=== PATIENT | female | born 1940 | race Caucasian/White ===

== ENCOUNTER 2020-05-05 18:13 | Inpatient (IN) | payer BC ==
[~2020-05-05] VITALS: Ht 160 cm; Wt 92.5 kg
[2020-05-05 18:20] VITALS: BP 194/88
[2020-05-05] MEDS ORDERED: ZOCOR 20 MG TAB20 M1 PO (18:25)
[2020-05-05] MEDS ORDERED: TRIAMTERENE/HCT1 CA1 PO (18:25)
[2020-05-05] MEDS ORDERED: LOPRESSOR50 MG PO (18:25)
[2020-05-05] MEDS ORDERED: KLOR-CON M2020 MEQ PO (18:26)
[2020-05-05 18:34] LABS: URINE BILIRUBIN NEGATIVE (Negative); URINE BLOOD 2+ (Negative); URINE CLARITY CLEAR; URINE COLOR YELLOW; URINE GLUCOSE-RANDOM NEGATIVE (Negative); URINE KETONES NEGATIVE (Negative); URINE NITRITE-REFLEX NEGATIVE (Negative); URINE PROTEIN TRACE (Negative); URINE UROBILINOGEN 0.2 E.U./dl (0.2-1.0)
[2020-05-05 18:36] LABS: URINE LEUKOCYTES-REFLEX 3+ (Negative)
[2020-05-05 18:45] LABS: MUCUS None Seen strn/LPF (None Seen); SQUAMOUS >10 Many /LPF (0-3)
[2020-05-05 18:46] LABS: BACTERIA-REFLEX 1-9 Few /HPF (None Seen); HYALINE CASTS 0-3 Few /LPF (None Seen); URINE WBC-REFLEX >25 Many /HPF (0-5)
[2020-05-05 18:47] LABS: CRYSTALS None Seen /LPF (None Seen); URINE RBC 0-2 Rare /HPF (0-2); WBC CLUMPS Few (None Seen)
[2020-05-05 18:50] LABS: ABSOLUTE BASOPHILS 0.1 thou/uL (0.0-0.2); ABSOLUTE EOSINOPHILS 0.4 thou/uL (0.0-0.7); ABSOLUTE LYMPHOCYTES 1.8 thou/uL (0.8-5.3); ABSOLUTE NEUTROPHILS 11.3 thou/uL (1.6-8.1); BASOPHILS 0.6 %; EOSINOPHILS 2.4 %; HEMATOCRIT 38.5 % (37.0-47.0); HEMOGLOBIN 12.9 gm/dL (12.0-15.0); LYMPHOCYTES 12.3 %; MCHC 33.6 g/dL (28.0-37.0); MCV 80.5 fL (80.0-100.0); MPV 6.8 fl. (7.2-11.1); NUCLEATED RBCS 0 /100WBC; PLATELET COUNT* 372 thou/uL (150-400); POLYS 77.7 %; RBC 4.78 mil/uL (4.20-5.00); RDW-CV 15.1 % (10.5-14.5); WBC 14.6 thou/uL (4.0-11.0)
[2020-05-05 19:05] LABS: CALCIUM 9.7 mg/dL (8.5-10.1); POTASSIUM 3.1 mmol/L (3.5-5.1)
[2020-05-05 19:09] LABS: ALBUMIN 3.8 g/dL (3.4-5.0); TOTAL BILIRUBIN 0.9 mg/dL (<0.1-1.0); TOTAL PROTEIN 8.1 g/dL (6.4-8.2)
[2020-05-05] MEDS ORDERED: BIMATOPROST2.5 ML OPHTHALMIC (21:48)
[2020-05-05 22:04] VITALS: BP 166/51
--- NOTE | 2020-05-06 05:24 | NUR ---
PT ALERT AND ORIENTED, STANDBY TO RESTROOM. REPORTS NO PAIN/NAUSEA/VOMITING. NPO SINCE MIDNIGHT. GI CONSULTED THIS MORNING
[2020-05-06 09:10] VITALS: BP 133/64
[2020-05-06 10:12] LABS: CALCIUM 8.8 mg/dL (8.5-10.1); CREATININE 0.9 mg/dL (0.6-1.3)
[2020-05-06 10:15] LABS: POTASSIUM 2.9 mmol/L (3.5-5.1)
[2020-05-06 10:37] LABS: MAGNESIUM 1.5 mg/dL (1.8-2.4); PHOSPHORUS* 4.3 mg/dL (2.5-4.9)
--- NOTE | 2020-05-06 13:46 | EKG ---
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
[2020-05-06 16:00] VITALS: BP 175/51
--- NOTE | 2020-05-06 16:00 | NUR ---
SPOKE WITH PT.WHO WAS LYING IN BED. DAUGHTER,NI,AT BEDSIDE. PT.ALERT AND ORIENTED. STATED SHE LIVES WITH NI. PT.SAID SHE LOST HER 2 YEARS AGO AND MOVED IN WITH DAUGHTER SHE DID NOT HAVE STAIRS IN HER HOME. PT.SAID SHE IS INDEPENDENT,DRIVES. NO USE OF DME OR HX OF HH. DISCUSSED DPOA BUT PT.AND DAUGHTER REFUSED. DAUGHTER SAID THERE ARE 4 CHILDREN AND THEY AGREE ON EVERYTHING ABOUT THE CARE OF THEIR MOM. PT.TO HAVE SURGERY TOMORROW. CM WILL FOLLOW POST OP FOR DISCHARGE PLANNING.
--- NOTE | 2020-05-06 17:27 | NUR ---
PATIENT RESTING IN BED. PATIENT IS UP STANDBY ASSIST. PATIENT IS NPO. PATIENT HAS DENIED ANY NAUSEA TODAY. PATIENT HAS ABDOMINAL PAIN BUT STATES IT IS MINOR AND DOES NOT NEED ANY MEDICATION FOR IT. PATIENT IS SCHEDULED FOR SURGERY TOMORROW. PATIENT DENIES ANY NEEDS AT THIS TIME. CALL LIGHT WITHIN REACH.
[2020-05-06 20:00] VITALS: BP 149/68
[2020-05-06 22:46] LABS: MAGNESIUM 1.9 mg/dL (1.8-2.4); POTASSIUM 3.5 mmol/L (3.5-5.1)
[2020-05-06 23:55] VITALS: BP 152/75
[2020-05-07 05:17] LABS: HEMATOCRIT 30.5 % (37.0-47.0); MCH 27.4 pg (26.0-34.0); MCHC 33.8 g/dL (28.0-37.0); MCV 81.1 fL (80.0-100.0); MPV 7.1 fl. (7.2-11.1); RBC 3.77 mil/uL (4.20-5.00); RDW-CV 15.2 % (10.5-14.5); WBC 8.5 thou/uL (4.0-11.0)
[2020-05-07 05:20] LABS: HEMOGLOBIN 10.3 gm/dL (12.0-15.0)
[2020-05-07 05:31] LABS: ALBUMIN 2.5 g/dL (3.4-5.0); CALCIUM 7.7 mg/dL (8.5-10.1); CREATININE 0.8 mg/dL (0.6-1.3); MAGNESIUM 1.7 mg/dL (1.8-2.4); POTASSIUM 3.3 mmol/L (3.5-5.1); TOTAL BILIRUBIN 0.6 mg/dL (<0.1-1.0); TOTAL PROTEIN 5.6 g/dL (6.4-8.2)
--- NOTE | 2020-05-07 06:53 | NUR ---
PATIENT SLEPT MOST OF THE NIGHT. IV FLUIDS CONTINUE TO INFUSE ORDERED. PATIENT WAS GIVEN PAIN MEDICINE ONCE THIS SHIFT. PATIENT HAS BEEN NPO SINCE MIDNIGHT FOR SURGERY TODAY. WILL CONTINUE TO MONITOR.
[2020-05-07 08:45] VITALS: BP 140/57
--- NOTE | 2020-05-07 14:00 | NUR ---
PT.IN SURGERY FOR LAPROSCOPY POSSIBLE LAPAROTOMY.
[2020-05-07 21:00] VITALS: BP 156/70
--- NOTE | 2020-05-07 21:00 | NUR ---
PT ARRIVED TO UNIT FROM PACU PER BED ACCOMPANIED BY OR STAFF. PT AOX4, DROWSY. RECEIVED IV PAIN MED FROM PACU PRIOR TO TRANSFER TO FLOOR. O2 2L NC SAT 94%, CAPNO MONITOR TO BE PLACED ON PT. LAC SL. MAY DRAINING YELLOW URINE. VSS. ABD MIDLINE INCISION DERMABOND, NO BLEEDING OR EXCESSIVE BRUISING. LAPS SITES CLEAN AND DRY, NO BLEEDING OR BRUISING. PT DENIES NEEDS AT PRESENT, WILL CONTINUE TO MONITOR AND PROVIDE CARES NEEDED. CALL LITE IN EASY REACH, BED ALARM ON PT.
[2020-05-08] VITALS: BP 152/75
[2020-05-08 04:00] VITALS: BP 164/81
[2020-05-08 04:31] LABS: HEMATOCRIT 33.2 % (37.0-47.0); HEMOGLOBIN 11.1 gm/dL (12.0-15.0); MCH 27.8 pg (26.0-34.0); MCHC 33.6 g/dL (28.0-37.0); MCV 82.7 fL (80.0-100.0); MPV 7.7 fl. (7.2-11.1); NUCLEATED RBCS 0 /100WBC; PLATELET COUNT* 213 thou/uL (150-400); RBC 4.01 mil/uL (4.20-5.00); RDW-CV 15.3 % (10.5-14.5); WBC 10.2 thou/uL (4.0-11.0)
[2020-05-08 04:54] LABS: CALCIUM 7.9 mg/dL (8.5-10.1); CREATININE 0.9 mg/dL (0.6-1.3)
--- NOTE | 2020-05-08 05:10 | NUR ---
PT SLEPT WELL OVERNIGHT. CAPNO ON, ALARMING BRIEFLY AT TIMES WITH SHORT PERIODS OF APNEA, SATS REMAINING 90'S 02 2L NC. MAY DRAINING YELLOW URINE. ABD LAP SITES INTACT WITHOUT EXCESSIVE BRUISING OR BLEEDING. LAC IVF INFUSING PER PUMP. SCDS ON BLE. IV PAIN MED PRN. AWAKENS BRIEFLY WITH CARES AND BACK TO SLEEP. TAKING FEW SIPS LIQUIDS WITHOUT N/V. CALL LITE IN EASY REACH, BED ALARM ON FOR SAFETY.
[2020-05-08 07:02] LABS: ABSOLUTE LYMPHOCYTES 0.8 thou/uL (0.8-5.3); ABSOLUTE MONOCYTES 0.5 thou/uL (0.0-1.2); ABSOLUTE NEUTROPHILS 8.9 thou/uL (1.6-8.1); PLATELET ESTIMATE ADEQUATE
[2020-05-08 07:30] VITALS: BP 163/67
--- NOTE | 2020-05-08 11:02 | NUR ---
PT.POD #1. ON CLEAR LIQUIDS. TO HAVE P.T. EVAL TODAY. SHE MAY NEED HOME HEALTH IF ADDITONAL THERAPY NEEDED. NO HX OF HOME HEALTH. SHE DOES NOT HAVE A PREFERENCE OF [facility]. CM WILL FOLLOW.
--- NOTE | 2020-05-08 13:22 | NUR ---
PT HAD GOOD AM UP TO CHAIR AND MAY REMOVED, PT AMBULATED HALLWAYS AFTER LUNCH TO [facility] [place] ST[facility] AND BACK WITH STANDBY ASSIST.
--- NOTE | 2020-05-08 16:25 | NUR ---
PT SLEPT WELL THIS AFTERNOON WITH DAUGHTER AT BEDSIDE. PT STATES SHE HAD NOT VOIDED SINCE HAVING MAY REMOVED.PT AMBULATED TO THE TOILET AND WAWS ABLE TO VOID.
[2020-05-08 20:00] VITALS: BP 152/64
[2020-05-09 00:02] VITALS: BP 132/55
[2020-05-09 03:58] VITALS: BP 144/69
[2020-05-09 04:59] LABS: HEMATOCRIT 27.9 % (37.0-47.0); HEMOGLOBIN 9.3 gm/dL (12.0-15.0); MCH 27.3 pg (26.0-34.0); MCHC 33.4 g/dL (28.0-37.0); MCV 81.6 fL (80.0-100.0); MPV 7.5 fl. (7.2-11.1); RBC 3.42 mil/uL (4.20-5.00); RDW-CV 14.9 % (10.5-14.5); WBC 9.9 thou/uL (4.0-11.0)
--- NOTE | 2020-05-09 05:11 | NUR ---
PT SLEPT OFF AND ON OVERNIGHT. RECEIVING PO PAIN MED AT HS WITH GOOD RESULT. AMBULATES TO BR WITH SBA, VOIDING WITHOUT DIFFICULTY. ABD LAP SITES WELL APPROXIMATED, NO BLEEDING. ROOM AIR SAT 96%. DENIES N/V. AM LABS. ABLE TO USE CALL LITE AND MAKE NEEDS KNOWN.
[2020-05-09 05:39] LABS: CALCIUM 7.6 mg/dL (8.5-10.1); CREATININE 0.8 mg/dL (0.6-1.3); POTASSIUM 3.6 mmol/L (3.5-5.1)
[2020-05-09 08:30] VITALS: BP 142/66
[2020-05-09 12:08] LABS: HEMATOCRIT 29.7 % (37.0-47.0); HEMOGLOBIN 9.9 gm/dL (12.0-15.0); MCH 27.3 pg (26.0-34.0); MCHC 33.3 g/dL (28.0-37.0); MCV 81.9 fL (80.0-100.0); MPV 6.7 fl. (7.2-11.1); RBC 3.62 mil/uL (4.20-5.00); RDW-CV 15.1 % (10.5-14.5); WBC 11.8 thou/uL (4.0-11.0)
[2020-05-09 16:01] VITALS: BP 180/82
--- NOTE | 2020-05-09 18:51 | NUR ---
PT HAD GOOD DAY, PAIN CONTROLLED, VSS, AMBULATED IN HALLS. PT HAS ABD BINDER FOR SUPPORT WHEN UP. DAUGHTER AT BEDSIDE MOST OF THE DAY FOR SUPPORT. STILL NO BM AND STATES SHE IS NOT PASSING GAS. GOOD BOWEL SOUNDS IN ALL QUADS.
[2020-05-09 21:47] VITALS: BP 154/71
[2020-05-10 04:00] LABS: HEMATOCRIT 28.1 % (37.0-47.0); HEMOGLOBIN 9.3 gm/dL (12.0-15.0); MCH 27.5 pg (26.0-34.0); MCHC 33.2 g/dL (28.0-37.0); MCV 82.9 fL (80.0-100.0); MPV 7.4 fl. (7.2-11.1); RBC 3.39 mil/uL (4.20-5.00); RDW-CV 15.2 % (10.5-14.5); WBC 8.9 thou/uL (4.0-11.0)
--- NOTE | 2020-05-10 04:23 | NUR ---
PAIN IS RATED 2/10, GIVEN TYLENOL AT BEDTIME. UP STANDBY ASSIST WITH WALKER. MIDLINE 3 LAPSITES FREE OF S/S INFECTION. ALERT AND ORIENTED, ROOM AIR, SOFT DIET - TOLERATING. NO NAUSEA, VOMITING OR WORSENING OF PAIN REPORTED. VOIDING WELL.
[2020-05-10 04:56] LABS: ALBUMIN 2.3 g/dL (3.4-5.0); CALCIUM 7.7 mg/dL (8.5-10.1); MAGNESIUM 1.8 mg/dL (1.8-2.4); POTASSIUM 3.4 mmol/L (3.5-5.1); TOTAL BILIRUBIN 0.3 mg/dL (<0.1-1.0); TOTAL PROTEIN 5.4 g/dL (6.4-8.2)
--- NOTE | 2020-05-10 07:31 | OP ---
[address] [address] OPERATIVE REPORT Name: MINE GARCIA Room: [address] IN .R.#: [id number] Admission: 05/05/20 Attend Phys: Lalita Cartagena MD Discharge: Date of : 40 Report #: [id number] THIS REPORT FOR: //name// cc: Zita Middleton MD, Tuongvan T. MD ~ CC: Lalita Middleton MD DATE OF SERVICE: 05/07/2020 PREOPERATIVE DIAGNOSIS: Obstructing mass in the right colon. POSTOPERATIVE DIAGNOSIS: Obstructing mass in the right colon. FINDINGS: Palpable 2 x 2 cm mass in the cecum. SURGEON: Karlie Paula DO CO-SURGEON: Jason Escamilla DO, PGY5. STYLIST ASSISTANT: MS Viky3. OPERATION PERFORMED: Laparoscopic lysis of adhesions greater than 1 hour, and laparoscopic right hemicolectomy with stapled anastomosis. ANESTHESIA: General, local and transversus abdominis plane block postop. ESTIMATED BLOOD LOSS: 30. SPECIMEN: Right colon. COMPLICATIONS: None. INDICATIONS: The patient is an 80-year-old female who presented to the Emergency Department with complaints of abdominal pain. She was found to have a small-bowel obstruction that was likely due to a soft tissue mass in her ileocecal region. She did not undergo preoperative colonoscopy. She was informed of the risks and benefits of laparoscopic right hemicolectomy with risks including but not limited to bleeding, infection, bowel injury, bladder injury, possibility for colostomy, possibility for open procedure and catastrophic complications including perioperative DC, and even . She understood the risks and decided to proceed with surgery. DESCRIPTION OF PROCEDURE: After informed consent was obtained, the patient was brought to the operating room and placed in supine position[place] [address] OPERATIVE REPORT Name: GARCIAMINE Contreras Room: [address] IN [facility]#: [id number] Admission: 05/05/20 Attend Phys: Lalita Cartagena MD Discharge: Date of : 40 Report #: [id number] running. Preoperative Rocephin had been given on the floor. General anesthesia was administered with an ET tube. The patient was prepped and draped in the usual sterile fashion. A Garrett was placed prior to prepping and draping. A surgical pause was held to confirm proper patient and procedure. A supraumbilical vertical 2 cm incision was made with an 11-blade. Dissection was bluntly carried down to the fascia. The fascia was elevated with 2 Raven clamps. Fascia was incised using cautery. Peritoneum was bluntly entered. A 0 Vicryl was used to place stay sutures on either side of the fascia. Lj trocar was introduced. The abdomen was insufflated. Camera was introduced. Brief exploration of the abdomen was undertaken. There was no obvious visible mass in the right lower quadrant. There were 2 or 3 loops of mildly dilated small bowel. The stomach was not dilated. The duodenum did not appear to be dilated. There was some ascites in the right upper quadrant as well as the pelvis. The patient was repositioned head down and left side down. Two additional 5 mm trocars were introduced under direct visualization in the suprapubic region and into the left lower quadrant. Laparoscopic Jenna graspers were used to reflect the omentum superiorly and identified the cecum. The cecum was not dilated, was decompressed, appeared normal externally. The small bowel was somewhat dilated, was run towards the terminal ileum approximately the distal 20-30 cm of small bowel were densely adhesed in the pelvis. 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 There were adhesions from the small bowel to the sigmoid colon, from the small bowel to the pelvic sidewall and to the deep pelvis, presumably the vaginal cuff. These adhesions were taken down with a combination of blunt dissection and laparoscopic scissors. Once this piece of small bowel was mobilized, the terminal ileum was used to reflect the cecum medially exposing the white line of Toldt. The appendix was also visualized, did not appear acutely inflamed or dilated. There were no visible masses within the appendix. With the cecum and right colon reflected medially, the white line of Toldt was taken down with cautery and a laparoscopic LigaSure device. This plane was developed superiorly until the hepatic flexure was met. Blunt dissection was used to reflect the colon further medially. The distal transection point on the transverse colon was identified in the mid transverse colon. The omentum was divided using the LigaSure device. The omentum was split and taken down to further reflect the hepatic flexure inferiorly and medially. The hepatic flexure was completely mobilized, the transverse mesocolon was divided and entered with blunt dissection using the [place] dissector as well as the LigaSure device. Once a window in the transverse mesocolon was made, attention was then returned towards the terminal ileum and Endo-RODRÍGUEZ Covidien purple load 60 mm stapler was fired across the terminal ileum due to the adhesive disease to the distal portion of the terminal ileum. This portion of bowel was included in the specimen, a portion of nondilated healthy appearing non-injured small bowel was transected with the stapler. The terminal ileum on the specimen side was then grasped and elevated and used to reflect the cecum superiorly. The LigaSure device was used to take down the mesocolon with care to stay low to allow for adequate petrona harvest and adequate oncologic [facility] [address] [place] [address] OPERATIVE REPORT Name: MINE GARCIA Room: [address] IN ..#: [id number] Admission: 05/05/20 Attend Phys: Lalita Cartagena MD Discharge: Date of : 40 Report #: [id number] surgery. Once the hepatic flexure was met, the attention was returned towards the transverse mesocolon. An additional Endo-RODRÍGUEZ 60 mm purple load was fired across the transverse mesocolon. Again, the colon was reflected inferiorly and towards the abdominal wall and the LigaSure device was used to take down the mesocolon. Once the mesocolic dissections were met at the hepatic flexure, the specimen was completely dissected free. It was placed aside. Laparoscopic locking graspers were placed on the terminal ileum and on the transverse colon for future anastomosis. At this point, the abdomen was desufflated. The Jl trocar was removed. The extraction site was selected at the Jl port, so the 2 cm skin incision was extended to approximately 5 cm. The subcutaneous tissue was divided using cautery. Fascia was opened using cautery. Peritoneum was opened using cautery with care to avoid injuring any underlying structures. Once the fascial and peritoneal openings were adequate, the Vivek wound protector was inserted into the abdomen. The specimen was extracted in its entirety and handed off. Specimen included the terminal ileum, cecum, the appendix, and the right colon. All as one specimen. This was handed off. The transverse colon and ileum were then exteriorized using Babcocks. A 3-0 [address] was used to place a crotch stitch and a stitch at the previous staple lines to line up the anastomosis. Allises were placed at the corners of both previous staple lines. Heavy curved Mayos were used to excise these opening the bowel. The open suction was used to prevent any spillage. There was no gross spillage into the abdomen. There was no contamination. The 60 mm Endo-RODRÍGUEZ purple load stapler was then inserted into the 2 limbs, the ileum and the transverse colon. The staple line was deployed. A TA-90 green load was then fired to close the common enterotomy after inspection of the internal staple line. Once this was deployed, the anastomosis was inspected. The anastomosis appeared quite narrow and the full length of the Endo-RODRÍGUEZ had not deployed as intended. Therefore, the TA staple line was opened using heavy curved Mayos and an additional load of the Endo-RODRÍGUEZ-60 purple was inserted into the common enterotomy and the common channel was extended significantly using the staple load. The common enterotomy was again closed using a TA-60 blue load. The anastomosis was inspected. It was hemostatic. The bowel appeared well perfused. The anastomosis was widely patent. The anastomosis was returned into the abdomen, the cap was placed on the Vivek wound protector. The abdomen was reinsufflated. Camera was reintroduced. The anastomosis laid in a natural manner. There was no twisting of the bowel. There were no kinks or sharp turns of the bowel. The remainder of the small bowel appeared normal. The omentum was reflected over the anastomosis. The abdomen and dissection sites were all hemostatic. The abdomen was irrigated and suctioned and the effluent was clear. There was no indication for a LOU drain, so one was not placed. The laparoscopic ports were removed under direct visualization. A third 5 mm port had been placed and used 5 mm in size. It was placed under direct visualization for assistance with retraction. This was also removed at this point. The abdomen then was desufflated. The Vivek wound protector was removed. Kochers were placed on the fascia. The fascia was elevated. The fascia was closed in small bites fashion using 2-0 running PDS from the superior and the inferior with a 2 cm overlap of the [address] [address] OPERATIVE REPORT Name: MINE GARCIA Room: [address]#: [id number] Admission: 05/05/20 Attend Phys: Lalita Cartagena MD Discharge: Date of : 40 Report #: [id number] sutures. This wound was closed in layered fashion using 3-0 Vicryl, 4-0 Monocryl. Remainder of the skin incisions were closed using a 4-0 Monocryl. Dermabond was used for dressing after the wounds were cleansed. The patient then underwent a postoperative transversus abdominis plane blocks in the operating room. The patient was then emerged from general anesthesia and transferred to the PACU and subsequently to the floor in stable condition. All counts were correct. <ELECTRONICALLY SIGNED> By: Jason Escamilla DO 05/10/20 0731 [id number] [id number] Escamilla DO /nt
[2020-05-10 08:00] VITALS: BP 135/81
[2020-05-10 15:42] VITALS: BP 179/71
--- NOTE | 2020-05-10 16:40 | NUR ---
PATIENT ALERT AND ORIENTED X 4. VITAL SIGNS STABLE ON ROOM AIR. AFEBRILE. UP WITH ASSISTANCE TO THE BATHROOM. IV PATENT AND SALINE LOCKED. PAIN BEING MANAGED WITH PO MEDICATION. NAUSEA BEING MANAGED WITH IV MEDICATION. 3 LAP SITES TO MIDLINE CLEAN, DRY, AND INTACT. SCD'S IN PLACE BILATERALLY. FALL PRECAUTIONS IN PLACE AND BED ALARM ON. HOURLY ROUNDS MAINTAINED THROUGHOUT THE SHIFT. CALL LIGHT WITHIN REACH. NURSING WILL CONTINUE TO MONITOR.
[2020-05-10 23:32] VITALS: BP 173/78
[2020-05-11 03:51] LABS: HEMATOCRIT 30.2 % (37.0-47.0); HEMOGLOBIN 10.1 gm/dL (12.0-15.0); MCH 27.5 pg (26.0-34.0); MCHC 33.6 g/dL (28.0-37.0); MPV 7.6 fl. (7.2-11.1); RBC 3.68 mil/uL (4.20-5.00); RDW-CV 15.3 % (10.5-14.5); WBC 10.1 thou/uL (4.0-11.0)
[2020-05-11 04:15] LABS: CALCIUM 7.9 mg/dL (8.5-10.1); CREATININE 0.8 mg/dL (0.6-1.3); POTASSIUM 3.2 mmol/L (3.5-5.1)
--- NOTE | 2020-05-11 04:59 | NUR ---
ASSUMED PT'S CARE THIS SHIFT. PT ALERT AND ORIENTED. VSS ON RA. MEDS GIVEN PER EMAR. PRN PAIN MED GIVEN X1 THIS SHIFT. FALL PRECAUTIONS IN PLACE. PT DECLINED MOST REPOSITIONINGS. CALL LIGHT WITHIN REACH. PT CALLS OUT APPROPRIATELY FOR VOIDING. LFA IV SL. DTR CALLED EARLY IN THE SHIFT FOR UPDATES. WILL CONTINUE TO MONITOR.
[2020-05-11 08:07] VITALS: BP 170/88
--- NOTE | 2020-05-11 15:59 | NUR ---
PT INCONT OF STOOL SEVERAL TIMES THIS SHFT. UP WITH WALKER AND STB. GRANDAUGHTER AT BEDSIDE. ABD BINDER IN PLACE. DENIES NEED FOR PAIN MEDICATION.
[2020-05-11 16:05] VITALS: BP 186/67
[2020-05-11 21:43] VITALS: BP 190/72
[2020-05-11 23:39] VITALS: BP 157/84
[2020-05-12 04:04] LABS: HEMOGLOBIN 10.1 gm/dL (12.0-15.0); MCH 27.3 pg (26.0-34.0); MCHC 33.7 g/dL (28.0-37.0); MPV 7.6 fl. (7.2-11.1); RBC 3.7 mil/uL (4.20-5.00); RDW-CV 14.9 % (10.5-14.5); WBC 10.6 thou/uL (4.0-11.0)
[2020-05-12 04:23] LABS: ALBUMIN 2.3 g/dL (3.4-5.0); CALCIUM 8.5 mg/dL (8.5-10.1); CREATININE 0.7 mg/dL (0.6-1.3); MAGNESIUM 1.5 mg/dL (1.8-2.4); POTASSIUM 3.7 mmol/L (3.5-5.1); TOTAL BILIRUBIN 0.6 mg/dL (<0.1-1.0)
--- NOTE | 2020-05-12 04:54 | NUR ---
PT A&OX4, VSS ON ROOM AIR, PT UP WITH SBA, PAIN MEDS REQUESTED AND GIVEN ORDERED, MULTIPLE LOOSE BM'S THIS SHIFT, PT SLEEPING WELL. HOURLY ROUNDINGS COMPLETE, WILL CONTINUE TO MONITOR.
[2020-05-12 08:00] VITALS: BP 145/52
[2020-05-12] MEDS ORDERED: GABAPENTIN 100100 MG PO (08:39)
[2020-05-12] MEDS ORDERED: OXYCODONE HCL 55 MG PO (08:39)
--- NOTE | 2020-05-12 11:15 | NUR ---
THIS NURSE AGREES WITH ASSESSMENT COMPELTED
[2020-05-12 11:52] LABS: CALCIUM 8.7 mg/dL (8.5-10.1); CREATININE 0.8 mg/dL (0.6-1.3); POTASSIUM 3.7 mmol/L (3.5-5.1)
[2020-05-12 12:24] VITALS: BP 145/52
[2020-05-12 12:40] VITALS: BP 145/52
--- NOTE | 2020-05-12 13:00 | NUR ---
PT.TO DISCHARGE HOME WITH HH. ABBY CALLED DAUGHTER, PT.DIDN'T KNOW WHO TO CHOOSE. DAUGHTER WORKS FOR [facility] BUT SAID THEY AREN'T ABLE TO TAKE NEW PTS TODAY. SHE CHOSE [facility]. ABBY SPOKE WITH [facility] AND FAXED DISCHARGE ORDERS,SUMMARY,MEDS AND OP REPORT TO HER AT [phone]. THEY WILL CALL PT.TO SET UP APPTS.
--- NOTE | 2020-05-14 11:07 | PATH ---
[address] [address] PATHOLOGY RPT PROCEDURE Name: BRUMFIELDTESSAMINE Diane Room: [address] IN .R.#: [id number] Admission: 05/05/20 Date of : 40 Discharge: 05/12/20 Report #: [id number] Path Case #: [id number] [facility] Accession Number: [id number] . 01 Material submitted: . colon - RIGHT COLON AND APPENDIX. Modifiers: right . 01 Clinician provided ICD-10: K56.699 N39.0 . 01 Clinical history: . COLON MASS, PARTIAL SMALL BOWEL OBSTRUCTION, UTI . 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 - 1 OF 16 PERICOLIC LYMPH NODES WITH METASTATIC ADENOCARCINOMA, ALSO SHOWING PROMINENT EXTRANODAL INVOLVEMENT OF FAT (1/16). SEE COMMENT. . (DOUGLAS:brody; 05/12/2020) . . Surgical Pathology Cancer Case Summary . COLON AND RECTUM: Resection, Including Transanal Disk Excision of Rectal Neoplasms . Procedure ___ Right hemicolectomy . Tumor Site ___ Cecum ___ Ileocecal valve . Tumor Size Greatest dimension: 4.0 cm . Macroscopic Tumor Perforation ___ Not identified . Histologic Type ___ Adenocarcinoma . Histologic Grade ___ G2: [place] [address] PATHOLOGY RPT PROCEDURE Name: MINE BRUMFIELD Room: [address]#: [id number] Admission: 05/05/20 Date of : 40 Discharge: 05/12/20 Report #: [id number] Path Case #: [id number] . Tumor Extension ___ Tumor invades through the muscularis propria into pericolorectal tissue . Margins ___ All margins are uninvolved by invasive carcinoma, high grade dysplasia / intramucosal carcinoma, and low grade dysplasia Margins examined: Proximal, distal, mesenteric + Distance of invasive carcinoma from closest margin: Mesenteric/radial . Treatment Effect ___ No known presurgical therapy . Lymphovascular Invasion ___ Not identified . Perineural Invasion ___ Present (see comment) . + Tumor Budding + ___ Intermediate score (5-9) . + Type of Polyp in Which Invasive Carcinoma Arose + ___ Tubular adenoma . Tumor Deposits ___ Not identified . Regional Lymph Nodes Number of Lymph Nodes Involved: 1 Number of Lymph Nodes Examined: 16 . PATHOLOGIC STAGE CLASSIFICATION (pTNM, AJCC 8th Edition) . Primary Tumor (pT) ___ pT3:Tumor invades through the muscularis propria into pericolorectal tissues . Regional Lymph Nodes (pN) ___ pN1a:One regional lymph node is positive . + Additional Pathologic Findings + ___ Other: Fibrous obliteration of distal appendiceal lumen . + Ancillary Studies: Pending . (DOUGLAS:brody; 05/12/2020) QLM 05/12/2020 [address] [place] [address] PATHOLOGY RPT PROCEDURE Name: MINE BRUMFIELD Room: [address] IN [facility]#: [id number] Admission: 05/05/20 Date of : 40 Discharge: 05/12/20 Report #: [id number] Path Case #: [id number] . 02 Comment: One lymph node shows tumor metastasis where it is nearly completely obliterated and adjacent to it is a focus of perineural invasion (A15). MMR/MSI immunohistochemical studies are pending on A7 and will be the subject of an addendum report. . A7 reviewed with Dr. Johnny Klein who agrees with the diagnosis. . Discussed with Dr. Paula on the afternoon of 05/12/2020. . (DOUGLAS:funmilayo; 05/12/2020) . 02 Addendum: . At the request of the physician, Dr. Karlie Paula, mismatch repair (MMR) protein immunohistochemical staining was performed. . Specimen: Formalin fixed paraffin embedded tissue Specimen ID: [id number] Reason for testing: To evaluate for evidence of defective mismatch repair proteins. Method: Immunohistochemical staining for the presence or absence of protein expression of one or more of the following MMR protein markers: MLH1, MSH2, MSH6 and PMS2. Tumor type: Moderately differentiated colonic adenocarcinoma. . Results: MLH1 - Preserved MSH2 - Preserved MSH6 - Preserved PMS2 - Preserved . Mismatch Repair Status: MMR Proficient (MMR-P) . Interpretation: . (MMR-P) All four MMR proteins are preserved within tumor cells. This suggests the presence of normal DNA mismatch repair function within the tumor and an observable defect in mismatch repair is not identified. The likelihood that this patient has an inherited germline mutation syndrome due to defective mismatch repair is reduced but not totally eliminated. If the patient has a strong personal or family history of HPNCC/Courtney syndrome related cancers (colorectal, endometrial, gastric, ovarian, pancreatic, ureter/renal pelvis, biliary tract, brain, small bowel and Belén-Mehul syndrome), consider MSI testing by PCR methodology. Suggest clinical correlation and follow up. . These test results are designed for screening purposes only [place] [address] PATHOLOGY RPT PROCEDURE Name: MINE BRUMFIELD Room: [address] IN [facility].#: [id number] Admission: 05/05/20 Date of : 40 Discharge: 05/12/20 Report #: [id number] Path Case #: [id number] tools in identifying cancer patients that are more likely to have Courtney Syndrome related diagnoses. Tests should be interpreted in the context of clinical findings, family history and laboratory data. Abnormal IHC results for MMR protein expression are not considered diagnostic for Courtney Syndrome. (SHA:mars; 05/13/2020) . . Professional services performed by [facility] at [address] [place] [address], [address], [place] [address]. Technical services performed by [facility] at [address] [place] [address], [address], [place] [address]. MBR/05/13/2020 Addendum Electronically Signed by Johnny Klein MD. Pathologist . 02 Electronically signed: . Gabo Crews MD, Pathologist NPI- [id number] . 01 Gross description: . The specimen is received in formalin, labeled "Brumfield, Mine, right colon and appendix" and consists of a right hemicolectomy specimen with terminal ileum (15.5 cm in length and up to 3.4 cm diameter), cecum and ascending colon (21.0 cm in length and ranging from 3.5-6.5 cm in diameter), appendix (4.5 cm in length and ranging of 0.4-0.6 cm in diameter) and pericolic fat (up to 7.5 cm). At the distal aspect there is omentum measuring 12.0 x 7.0 cm and both margins are closed with a line of óscar. The terminal ileum serosa is chacon with hemorrhagic adhesions revealing a green chacon mucosa with no gross lesions. The cecum/ascending colon shows focal hemorrhagic adhesions revealing a near circumferential mass just adjacent and possibly involving the ileocecal valve (4.0 x 3.8 cm). The mass is pink-chacon with a rolled borders and central ulceration. The remaining mucosa is green chacon to pink with no additional gross lesions. The mass is 16.5 cm to proximal, 16.0 cm to distal, and 5.0 cm to mesenteric margin (inked black). Sectioning reveals the mass obliterates the muscular wall with focal invasion into the pericolic tissue and invasion of the ileocecal valve. There is also possible invasion of the small bowel. The appendix is pink-chacon and sectioning reveals fibrous obliteration of the tip. The omentum reveals no gross lesions. The pericolic tissue is placed in clearing solution revealing multiple lymph node candidates with a few suspicious for tumor invasion. [employer] sections are submitted as follows: . A1: Proximal margin A2: Distal margin A3: Mesenteric/radial margin A4-A5: Mass and IC valve A6-A7: Mass pericolic tissue invasion A8: Mass to small bowel A9: [place] [address] PATHOLOGY RPT PROCEDURE Name: MINE BRUMFIELD Room: [address] [place] ..#: [id number] Admission: 05/05/20 Date of : 40 Discharge: 05/12/20 Report #: [id number] Path Case #: [id number] A10: Omentum A11: Lymph node suspicious for tumor metastasis A12: One bisected lymph node A13-A14: One bisected lymph node A15: 1 bisected lymph node suspicious for tumor invasion A16: 2 bisected lymph nodes, one black A17: 5 intact lymph node candidates A18: 2 bisected lymph nodes, one black A19: One bisected lymph node suspicious for tumor involvement (SDY; 05/11/2020) SYU/SYU 05/12/2020 1334 Local . 02 Pathologist provided ICD-10: C18.0, C77.2 . 02 CPT . 562682, [id number], A42250 Specimen Comment: A courtesy copy of this report has been sent to [phone] Specimen Comment: [id number] Specimen Comment: Report sent to DR TORRES / DR TAYLOR Performed at: [address] [facility] [id number] [facility] [address], [place], [place] [id number] MD Johnny Klein MD Phone: [phone] Performed at: 02 [facility] [address], [place], [place] [id number] MD Gabo Crews MD Phone: [phone]
== END 2020-05-12 13:05 | disposition home health service (06) | DRG 330 ==
LOC: M.ERS 18:13 → M.TBA-ER 20:52 → M.ORTHSURG 20:52
PROVIDERS: Emergency Medicine; Internal Medicine; Surgery; ADMIT Internal Medicine; ATTEND Internal Medicine
DX: K56.600 Partial intestinal obstruction, unspecified as to cause (principal); R65.10 Systemic inflammatory response syndrome (SIRS) of non-infectious origin without acute organ dysfunction; N30.01 Acute cystitis with hematuria; K63.9 Disease of intestine, unspecified; E78.00 Pure hypercholesterolemia, unspecified; I10 Essential (primary) hypertension; E87.6 Hypokalemia; E86.9 Volume depletion, unspecified; K21.9 Gastro-esophageal reflux disease without esophagitis; J45.909 Unspecified asthma, uncomplicated; I49.1 Atrial premature depolarization; E78.5 Hyperlipidemia, unspecified; Z20.828 Contact with and (suspected) exposure to other viral communicable diseases; Z90.710 Acquired absence of both cervix and uterus; Z79.899 Other long term (current) drug therapy; Z88.8 Allergy status to other drugs, medicaments and biological substances; Z87.891 Personal history of nicotine dependence